=== PATIENT | male | born 1970 | race Caucasian/White ===

== ENCOUNTER 2018-04-18 06:00 | Inpatient (IN) | payer OTHER ==
[~2018-04-18] VITALS: Ht 182.9 cm; Wt 130.4 kg
[2018-04-18 06:55] LABS: BASOPHIL % 0.6 % (0-2); PLATELET COUNT 262 x10^3mcL (130-400); RED CELL DISTRIBUTION WIDTH 14.2 % (11.5-14.5)
[2018-04-18 07:48] LABS: CHLORIDE SERUM 105 mmol/L (98-107); POTASSIUM SERUM 4.4 mmol/L (3.5-5.1); SODIUM SERUM 137 mmol/L (136-145)
[2018-04-18 07:49] LABS: ALBUMIN 3.9 g/dL (3.4-5.0); ALKALINE PHOSPHATASE 130 U/L (46-116); ALT/SGPT 106 U/L (16-63); AST/SGOT 63 U/L (15-37); BILIRUBIN TOTAL 0.5 mg/dL (0.20-1.00); CALCIUM 9.5 mg/dL (8.5-10.1); CARBON DIOXIDE 18.7 mmol/L (21-32); CREATININE SERUM 0.9 mg/dL (0.7-1.3); GFR1 > 60 mL/min; GLUCOSE SERUM 149 mg/dL (74-106); LIPASE 128 IU/L (73-393); TOTAL PROTEIN, SERUM 7.8 g/dL (6.4-8.2)
[2018-04-18 08:44] VITALS: BP 153/105
[2018-04-18 09:24] VITALS: BP 153/105
[2018-04-18 09:44] LABS: MAGNESIUM 2.4 mg/dL (1.8-2.4); PHOSPHOROUS 3.3 mg/dL (2.5-4.9)
[2018-04-18 09:48] LABS: CHOLESTEROL/HDL RATIO 7.4
[2018-04-18 10:06] LABS: FREE T4 0.31 ng/dL (0.76-1.46)
[2018-04-18 10:15] LABS: FREE THYROXINE INDEX 0.6 ug/dL (1.4-4.5); T4(THYROXINE) 2.4 ug/dL (4.7-13.3)
[2018-04-18 10:38] LABS: T3 TOTAL 0.88 ng/mL
[2018-04-18 11:01] VITALS: Ht 182.9 cm; Wt 130.4 kg
[2018-04-18 12:09] VITALS: BP 140/101
[2018-04-18 12:46] LABS: microscopic required? YES; urine erythrocyte NEGATIVE (NEGATIVE)
[2018-04-18 16:06] VITALS: BP 119/79
[2018-04-18 21:22] VITALS: BP 126/77
[2018-04-18 23:30] VITALS: BP 126/77
== END 2018-04-19 00:29 | disposition short-term general hospital (02) | DRG 282 ==
LOC: ED 06:00 → DU 08:02
PROVIDERS: Emergency Medicine; Internal Medicine
DX: I21.4 Non-ST elevation (NSTEMI) myocardial infarction (principal); E78.5 Hyperlipidemia, unspecified; E78.00 Pure hypercholesterolemia, unspecified; Z68.39 Body mass index [BMI] 39.0-39.9, adult
CPT/HCPCS: 83880; 84439; J1644; J1885; J2270; Q0092

== ENCOUNTER 2018-12-18 15:44 | Emergency (ER) | payer OTHER ==
[~2018-12-18] VITALS: Ht 182.9 cm; Wt 123.8 kg
[2018-12-18 16:01] VITALS: Ht 182.9 cm; Wt 123.8 kg
[2018-12-18 16:58] VITALS: BP 105/68
== END 2018-12-18 16:58 | disposition home or self-care (01) ==
LOC: ED 15:44
DX: S61.452A Open bite of left hand, initial encounter (principal); E78.00 Pure hypercholesterolemia, unspecified; Z90.89 Acquired absence of other organs; W54.0XXA Bitten by dog, initial encounter; Y93.89 Activity, other specified; Y92.89 Other specified places as the place of occurrence of the external cause; Y99.8 Other external cause status
CPT/HCPCS: 90715